=== PATIENT | male | born 1960 | race African-American/Black ===

== ENCOUNTER 2023-06-04 08:39 | Emergency (ER) | payer MEDICAID, OTHER ==
[~2023-06-04] VITALS: Ht 180.3 cm; Wt 97.7 kg
[~2023-06-04 08:39] MED LIST: ASPI81TA40 PO
[2023-06-04 08:46] VITALS: TEMP 98.7
[2023-06-04] MEDS ORDERED: METF-1211 PO ×2 (09:07→11:31)
[2023-06-04] MEDS ORDERED: unknown bp med PO (09:07)
[2023-06-04] MEDS ORDERED: ALBU18HF12 IH ×2 (09:47→11:31)
[2023-06-04] MEDS ORDERED: BECL10.62 IH (09:47)
[2023-06-04] MEDS ORDERED: FAMO20 PO ×2 (09:47→11:31)
[2023-06-04] MEDS ORDERED: IPRA3AMP23 NEB ×2 (09:47→11:31)
[2023-06-04] MEDS ORDERED: LISI-892 PO ×2 (09:47→11:31)
[2023-06-04] MEDS ORDERED: FURO-152 PO ×2 (09:47→11:31)
[2023-06-04] MEDS ORDERED: METO25 PO (09:47)
[2023-06-04 12:04] VITALS: BP 140/92; PULSE 94; RESP 18
== END 2023-06-04 12:06 | disposition home or self-care (01) ==
LOC: EMS 08:43
DX: Z76.0 Encounter for issue of repeat prescription (principal); M19.90 Unspecified osteoarthritis, unspecified site; I10 Essential (primary) hypertension; G89.29 Other chronic pain; E11.40 Type 2 diabetes mellitus with diabetic neuropathy, unspecified; F17.210 Nicotine dependence, cigarettes, uncomplicated; Z98.890 Other specified postprocedural states
CPT/HCPCS: 71045; 82962; 99283

== ENCOUNTER 2023-11-30 13:08 | Emergency (ER) | payer OTHER ==
[~2023-11-30] VITALS: Ht 180.3 cm; Wt 81.8 kg
[~2023-11-30 13:08] MED LIST changes: +ALBU18HF12 IH; -ASPI81TA40 PO; +BECL10.62 IH; +FAMO20 PO; +FURO-152 PO; +IPRA3AMP23 NEB; +LISI-892 PO; +METF-1211 PO; +METO25 PO; +unknown bp med PO
[2023-11-30 13:21] VITALS: BP 100/53; PULSE 86; RESP 18; TEMP 97.6
[2023-11-30 13:46] LABS: GLUCOMETER DEV NAME(LOC) ERT.5; GLUCOSE,POINT OF CARE 112 MG/DL (70-110)
[2023-11-30] MEDS ORDERED: DOXY-354 PO (14:22)
[2023-11-30] MEDS ORDERED: LIDOCAINE/PF 1% 2 ML VIAL IM ONE (14:30)
[2023-11-30] MEDS ORDERED: AZITHROMYCIN 500 MG TABLET PO ONE (14:30)
[2023-11-30] MEDS ORDERED: CefTRIAXone SODIUM 1 GM/VIAL IM ONE (14:30)
== END 2023-11-30 14:40 | disposition home or self-care (01) ==
LOC: EMS 13:10
DX: N34.2 Other urethritis (principal); E11.9 Type 2 diabetes mellitus without complications; I10 Essential (primary) hypertension; K21.9 Gastro-esophageal reflux disease without esophagitis; G89.29 Other chronic pain; F17.210 Nicotine dependence, cigarettes, uncomplicated
CPT/HCPCS: 99283; 82962; 96372; J0696; J3490; Q9967